=== PATIENT | female | born 1935 | race Caucasian/White ===

== ENCOUNTER 2018-05-23 10:26 | Day surgery (SDC) | payer MEDICARE ==
--- NOTE | 2018-05-23 07:03 | History and Physical - [place] ---
CHIEF COMPLAINT/HISTORY OF CHIEF COMPLAINT: This patient with a history of intractable lumbar radiculopathy and a post laminectomy syndrome had a successful stimulator trial on 03/24/18 with 75% pain control. Due to the failure of therapy and the success of the trial the patient presents today for implantation of a permanent system. PAST MEDICAL HISTORY: Hypertension and reflux. PAST SURGICAL HISTORY: Gallbladder surgery, spinal surgery, and shoulder surgery. MEDICATIONS ON ADMISSION: List to be provided. ALLERGIES: List to be provided. FAMILY/PSYCHOSOCIAL HISTORY: Social history - Caffeine. Family history - Diabetes, coronary artery disease, hypertension and cancer. SYSTEMS REVIEW: The patient is appropriate in no acute distress. The remainder of the systems review is positive for glasses, blood pressure, and degenerative arthritis. PHYSICAL EXAMINATION: Height is 4'11", weight is 130. No vital signs. HEENT: Within normal limits. LUNGS: Clear. HEART: Regular rate and rhythm. ABDOMEN: Nontender. MUSCULOSKELETAL: Examination of the musculoskeletal system shows diffuse tenderness at the lumbar spine. Range of motion does cause pain throughout the low back and extending into both lower extremities. There is motor and sensory abnormalities to both legs. Weakness is identified. Sensory deficits are identified. Ambulation - No assistive device utilized. NEUROLOGIC: Cranial nerves are intact. IMPRESSION: POST LUMBAR LAMINECTOMY SYNDROME, ICD-10 CODE M96.1 WITH RADICULOPATHY, ICD-10 CODE M54.16 AND M54.17. PLAN: The patient is here for permanent spinal cord stimulator after successful trial. The procedure will be considered outpatient although an overnight stay will be evaluated. The potential risks, side effects, and complications have been reviewed and discussed. In particular she has moderately severe rotoscoliosis and we expect the implant to be somewhat difficult technically. JOB NUMBER: [id number] [facility]
[~2018-05-23 10:26] MED LIST: ACETAMINOPHEN 1,000 MG/100 ML BTL IV ONE; CEFAZOLIN 2 Gram 2 GM/50 ML BAG IVPB ONE; FAMOTIDINE 20MG TABLET PO ONE; MECLIZINE 25 MG TABLET PO ONE; METOCLOPRAMIDE 10 MG TABLET PO ONE
[2018-05-23] MEDS ORDERED: MIDAZOLAM HCL 2MG/2ML VIAL IV ONE (10:27)
[2018-05-23] MEDS ORDERED: LIDOCAINE 2% MDV (20MG/ML) 20ML VIAL IV ONE (10:27)
[2018-05-23] MEDS ORDERED: FENTANYL PF 100MCG/2ML VIAL IV ONE (10:27)
[2018-05-23] MEDS ORDERED: 0.9 % SODIUM CHLORIDE 10 ML VIAL IVP ONE (10:27)
[2018-05-23] MEDS ORDERED: LIDOCAINE 1% W/EPI 1:200,000 MPF 30ML SQ ONE (10:27)
[2018-05-23] MEDS ORDERED: **ER** KETAMINE HCL 500MG/10ML VIAL IV ONE (10:27)
[2018-05-23] MEDS ORDERED: PROPOFOL 10 MG/ML VIAL IV ONE (10:27)
[2018-05-23] MEDS ORDERED: CEFAZOLIN 1G VIAL IM ONE (10:27)
[2018-05-23] MEDS ORDERED: BUPIVACAINE 0.5% W/EPI MPF 30 ML VIAL IVP ONE (10:27)
--- NOTE | 2018-05-24 17:25 | Operative Note ---
DATE OF SURGERY: 05/23/2018. PREOPERATIVE DIAGNOSIS: 1. POSTLUMBAR LAMINECTOMY SYNDROME, ICD-10 CODE M96.1. 2. LUMBAR RADICULOPATHY, ICD-10 CODE M54.16 AND M54.17. POSTOPERATIVE DIAGNOSIS: 1. POSTLUMBAR LAMINECTOMY SYNDROME, ICD-10 CODE M96.1. 2. LUMBAR RADICULOPATHY, ICD-10 CODE M54.16 AND M54.17. OPERATION: 1. Fluoroscopically guided epidural injection left T12-L1. Placement of spinal cord stimulator lead 1, a [employer]on 16 with 16 electrodes, positioned left at T6. 2. Fluoroscopically guided epidural access left at T11-12. Placement of spinal cord stimulator lead 2, a [employer]on 16 with 16 electrodes, positioned at right T6. 3. Complex programming of lead 1 over 20 minutes followed by complex programming of lead 2 over 20 minutes. 4. Incision, subcutaneous dissection, and anchoring of lead 1 and lead 2 to the supraspinous fascia using a [employer] locking anchor. 5. Incision, subcutaneous dissection, and creation of subcutaneous pouch at right flank, a site picked by the patient for the generator identified as [employer] programmable rechargeable Wavewriter generator. 6. Tunneling between pouches. Placement of external portion of lead 1 and lead 2 into generator pouch, each lead interfaced to the generator. 7. Placement of generator pouch with placement of leads into the pouch. 8. Closure of incisions with Stratafix suture, #2-0 for the fascia and #3-0 for the skin. Dermabond closure. 9. Complex recovery room programming of the internal generator for home use, two stimulators, in the recovery room for 20 minutes. SURGEON: Kamran Delatorre D.O. ANESTHESIA: Local sedation. ANESTHESIA PROVIDER: Jelly Martinez CRNA. INDICATION: This patient presents with a history of intractable lumbar radiculopathy which is postlaminectomy. Due to the failure of therapy, a spinal cord stimulator trial was conducted with greater than 75 percent pain control. Due to the failure of all therapies and the success of the trial, the patient presents today for implantation of a permanent system. DESCRIPTION OF PROCEDURE: Intravenous lines, vital sign monitoring, and intravenous sedation. Prepped and draped with sterile technique with the patient positioned prone. Under imaging, from the left the epidural interspaces at 12-1 and 11-12 were marked and infiltrated. Two separate curved access Epimed needles were positioned with loss of resistance. At 12-1 spinal cord stimulator lead 1, a [employer]on 16 with 16 electrodes, was positioned left at T6. With the epidural access at 11-12, spinal cord stimulator lead 2, a [employer]on 16 with 16 electrodes, was positioned right at T6. Complex programming of lead 1 over 20 minutes was followed by complex programming of lead 2 over 20 minutes. This resulted in complete patterns of stimulation across the back and into the legs. The patient indicated we were in all of the areas of the pain. She was then given the options to implant, continue to program, or remove. She opted to implant. The question was repeated with the same response. The skin above an below the needles was infiltrated. Incision was made and subcutaneous dissection was conducted to the supraspinous fascia. Each lead was then anchored to the supraspinous fascia after the needles were removed with a locking anchor and nonabsorbable suture. At the right flank, the site picked by the patient for the generator, the skin was infiltrated. An incision was made and subcutaneous dissection was conducted to form a pouch of suitable size and depth for the generator, a [employer] programmable rechargeable Wavewriter generator. A tunneling tool was used to carry the external portion of the leads into the generator pouch, and then each lead was interfaced to the generator. Antibiotic irrigation and Bovie for hemostasis. The generator was placed into the pouch and the leads were placed into their own pouch. Both incisions were then closed with Stratafix suture with #2-0 for the fascia and #3 -0 for the skin. Dermabond closure. She was transported to the recovery room stable, showing no side effects from the procedure or the sedation. When fully awake and alert, complex programming was then performed with the internal generator, reproducing stimulation patterns to all of the appropriate areas. The patient was instructed on the use of the system and was provided with information on air messaging. She was then prepared for discharge. DISCHARGE INSTRUCTIONS: 1. The sites are to remain clean and dry. Although the Dermabond will allow showering, she should not sit in water. 2. Standard medications to be resumed including the antibiotic to be determined by her allergies for the next 10 to 14 days. 3. The office will contact the patient at home in the next 24 to 48 hours to set up an appointment in seven to ten days to evaluate the sites. Until then, she is to keep her activities low and limit bend, lift, push, and pull. 5. All other instructions were provided and numbers to contact with problems were given. She will be discharged. JOB NUMBER: [id number] cc: Nani Mendez
--- NOTE | 2018-05-26 08:15 | RADIOLOGY REPORT ---
EXAM: LUMBAR SPINE HISTORY: PAIN STIMULATOR PLACEMENT. TECHNIQUE: A single AP view of the lumbar spine was performed. FINDINGS: The stimulator lead tips are at the T6 level. IMPRESSION: STIMULATOR LEAD TIPS ARE AT THE T6 LEVEL. JOB NUMBER: [id number] [facility]
== END 2018-05-23 15:45 | disposition home or self-care (01) ==
LOC: SUR 10:26
PROVIDERS: ATTEND Pain Medicine Interventional Pain Medicine
DX: M96.1 Postlaminectomy syndrome, not elsewhere classified (principal); M54.16 Radiculopathy, lumbar region; M54.17 Radiculopathy, lumbosacral region; I10 Essential (primary) hypertension; E78.00 Pure hypercholesterolemia, unspecified
CPT/HCPCS: 63650; 63685; 01936; 95972; 72020; J3010; J0690; C1820; C1883